=== PATIENT | female | born 1955 | race Caucasian/White ===

== ENCOUNTER 2020-04-21 07:38 | Outpatient (CLI) | payer OTHER, SELFPAY ==
[2020-04-21 09:02] LABS: Alanine Aminotransferase 21 U/L (4-35); Albumin Level 4.2 g/dL (3.5-5.1); Alkaline Phosphatase 85 U/L (38-126); Aspartate Amino Transferase 26 U/L (14-36); Bilirubin,Total 0.8 mg/dL (0.2-1.3); Blood Urea Nitrogen 17 mg/dL (7-17); Carbon Dioxide 29 mmol/L (22-30); Chloride 102 mmol/L (98-107); Cholesterol 194 mg/dL (0-200); Estimated Glomerular Filt Rate > 60; Glucose 91 mg/dL (65-105); HDL Direct 59 mg/dL; Potassium 4.1 mmol/L (3.4-5.0); Sodium 137 mmol/L (137-145); Triglycerides 52 mg/dL (<150)
[2020-04-21 09:04] LABS: Basophils Percent Auto 0.4 % (0.2-1.2); Eosinophils Absolute Auto 0.1 K/mm3 (0-0.3); Eosinophils Percent Auto 1.8 % (0-4.4); Hematocrit 43.6 % (37.0-47.0); Hemoglobin 14.5 g/dL (12.0-15.0); Immature Granulocyte Absolute 0.01 K/mm3 (0.00-0.031); Immature Granulocyte Percent A 0.1 % (0-0.5); Lymphocytes Absolute Auto 2.42 K/mm3 (0.9-3.2); Lymphocytes Percent Auto 35.6 % (18.3-44.2); Mean Corpuscular HGB Conc 33.3 g/dl (32-36); Mean Corpuscular Hemoglobin 29.7 pg (26-34); Mean Corpuscular Volume 89.2 fl (80-100); Mean Platelet Volume 10.8 fl (7.4-10.4); Monocytes Absolute Auto 0.5 K/mm3 (0.1-0.6); Monocytes Percent Auto 7.7 % (2.6-8.5); Neutrophils Absolute Auto 3.7 K/mm3 (1.3-6.7); Neutrophils Percent Auto 54.4 % (45.5-73.1); Platelet Count Result 251 k/mm3 (150-375); Red Blood Count 4.89 M/mm3 (4.2-5.4); Red Cell Distribution Width 13.2 % (11.5-14.5); White Blood Count 6.8 K/mm3 (4.5-10.0)
[2020-04-21 09:14] LABS: LDL Cholesterol Direct 99 mg/dL
[2020-04-21 10:01] LABS: Vitamin D 25 Hydroxy 47.3 ng/mL
[2020-04-21 10:10] LABS: Folic Acid > 20.0 ng/mL (2.76->20)
[2020-04-21 10:14] LABS: Thyroid Stimulating Hormone Reflex 0.454 uIU/mL (0.465-4.68)
[2020-04-21 10:46] LABS: Free T4 Free Thyroxine Reflex 1.01 ng/dL (0.78-2.19)
[2020-04-21 12:31] LABS: Total Triiodothyronine (T3) 1.43 NG/ML (0.97-1.69)
== END 2020-04-21 07:39 | disposition home or self-care (01) ==
PROVIDERS: PCP Internal Medicine; Visit Provider Internal Medicine
DX: E78.5 Hyperlipidemia, unspecified (principal); E55.9 Vitamin D deficiency, unspecified
CPT/HCPCS: 36415; 80053; 80061; 82306; 82607; 82746; 84439; 84443; 84480; 85025

== ENCOUNTER 2020-05-06 14:59 | Outpatient (CLI) | payer OTHER, SELFPAY ==
--- NOTE | ~2020-05-06 | MM_ITS ---
EXAMINATION: MM scrn austyn implant BI w alyssa HISTORY: Screening mammogram TECHNIQUE: Craniocaudal and mediolateral oblique 3-D tomosynthesis images with implant displacement a nd synthetic 2-D images were generated. Craniocaudal and mediolateral oblique views of the breasts wi thout implant displacement were obtained using full field digital mammography. CAD analysis was submi tted and interpreted. COMPARISON: 08/15/2018, 04/29/2017 BREAST PARENCHYMAL COMPOSITION: The breasts are almost entirely fatty. FINDINGS: There is no evidence of suspicious mass, calcification, or architectural distortion to sugg est malignancy in either breast. There has been no suspicious interval change. IMPRESSION: 1. No mammographic evidence of malignancy. 2. Recommend routine screening mammography in one year. BI-RADS Category 1: Negative Reviewed, dictated and finalized at location A.
== END 2020-05-06 15:00 | disposition home or self-care (01) ==
PROVIDERS: PCP Internal Medicine; Visit Provider Internal Medicine
DX: Z12.31 Encounter for screening mammogram for malignant neoplasm of breast (principal)
CPT/HCPCS: 77063; 77067

== ENCOUNTER 2021-05-10 15:28 | Outpatient (CLI) | payer MEDICARE, SELFPAY ==
--- NOTE | ~2021-05-10 | MM_ITS ---
EXAMINATION: MM scrn austyn implant BI w alyssa HISTORY: Screening mammogram TECHNIQUE: Craniocaudal and mediolateral oblique 3-D tomosynthesis images with implant displacement a nd synthetic 2-D images were generated. Craniocaudal and mediolateral oblique views of the breasts wi thout implant displacement were obtained using full field digital mammography. CAD analysis was submi tted and interpreted. COMPARISON: 05/06/2020, 08/15/2018, 04/29/2017 BREAST PARENCHYMAL COMPOSITION: There are scattered areas of fibroglandular density. FINDINGS: There is no evidence of suspicious mass, calcification, or architectural distortion to sugg est malignancy in either breast. There has been no suspicious interval change. IMPRESSION: 1. No mammographic evidence of malignancy. 2. Recommend routine screening mammography in one year. BI-RADS Category 1: Negative Reviewed, dictated and finalized at location A.
== END 2021-05-10 15:29 | disposition home or self-care (01) ==
PROVIDERS: PCP Internal Medicine; Visit Provider Internal Medicine
DX: Z12.31 Encounter for screening mammogram for malignant neoplasm of breast (principal)
CPT/HCPCS: 77063; 77067

== ENCOUNTER 2022-10-09 10:16 | Outpatient (CLI) | payer MEDICARE, SELFPAY ==
--- NOTE | ~2022-10-09 | MM_ITS ---
EXAMINATION: MM scrn austyn implant BI w alyssa HISTORY: . TECHNIQUE: Craniocaudal and mediolateral oblique 3-D tomosynthesis images with implant displacement a nd synthetic 2-D images were generated. Craniocaudal and mediolateral oblique views of the breasts wi thout implant displacement were obtained using full field digital mammography. CAD analysis was submi tted and interpreted. COMPARISON: Comparison to multiple prior studies sequentially, with oldest reviewed study dated 12/2016. BREAST PARENCHYMAL COMPOSITION: There are scattered areas of fibroglandular density. FINDINGS: There are bilateral subpectoral saline implants. There is no evidence of suspicious mass, c alcification, or architectural distortion to suggest malignancy in either breast. There has been no s uspicious interval change. IMPRESSION: 1. No mammographic evidence of malignancy. 2. Recommend routine screening mammography in one year. BI-RADS Category 1: Negative Reviewed, dictated and finalized at location B. SPOOLER
== END 2022-10-09 10:17 | disposition home or self-care (01) ==
PROVIDERS: PCP Internal Medicine; Visit Provider Internal Medicine
DX: Z12.31 Encounter for screening mammogram for malignant neoplasm of breast (principal)
CPT/HCPCS: 77063; 77067

== ENCOUNTER 2024-09-08 17:58 | Emergency (ER) | payer MEDICARE, SELFPAY ==
[2024-09-08] VITALS (12 sets, daily range): BP systolic 143–230; BP diastolic 91–128; PULSE 70–91; RESP 13–24; TEMP 36.6; O2SAT 97–100
--- NOTE | ~2024-09-08 | XR_ITS ---
CHEST RADIOGRAPH, PA AND LATERAL CLINICAL HISTORY: chest pain . COMPARISON: 06/19/2016 TECHNIQUE: PA and lateral views of the chest. FINDINGS The cardiomediastinal silhouette is unremarkable. The lungs are clear. Visualized osseous structures and soft tissues are unremarkable. IMPRESSION: No focal infiltrate or effusion. Reviewed, dictated and finalized at location A. SPLICER
--- NOTE | ~2024-09-08 | CT_ITS ---
EXAMINATION: CTA chest DATE: 09/08/2024 21:56 PROFESSIONAL BUILDER INDICATION: Chest pain, dissection suspected clinically TECHNIQUE: Computed tomographic angiography (CTA) of the chest was performed with 100 mL Omnipaque-35 0 intravenous contrast. The dose-length product was 522.19 mGy-cm. Maximum intensity projection 3D-re constructions of the aorta and other arteries were constructed by the technologist on a separate work station. COMPARISON: None. FINDINGS: The thyroid gland is heterogeneous and enlarged for which nonemergent thyroid ultrasound may be perfo rmed. The thoracic aorta is unremarkable without dissection. No aneurysmal dilatation is present. No filling defects within the main or proximal pulmonary arteries. The heart is of normal size, without pericardial effusion. The gallbladder is decompressed, and otherwise unremarkable. IMPRESSION: No dissection. No pulmonary embolus. Incidental notation is made of heterogeneously enlarged thyroid gland for which ultrasound may be per formed nonemergently for follow-up. Reviewed, dictated and finalized at location A. ESSIONAL BUILDER IMPRESSION: No dissection. No pulmonary embolus. Incidental notation is made of heterogeneously enlarged thyroid gland for which ultrasound may be performed nonemergently for follow-up.
--- NOTE | 2024-09-08 17:58 | ECG_ITS ---
Test Date: 2024-09-08 18:04:42 Measurements Intervals [place] Rate: 82 P: 39 [place]: 149 QRS: -29 QRSD: 98 T: 56 QT: 363 QTc: 425 Interpretive Statements SINUS RHYTHM LEFT VENTRICULAR HYPERTROPHY AND ST-T CHANGE CANNOT R/O SEPTAL INFARCT, AGE INDETERMINATE BORDERLINE ST ABNORMALITY- INF/LAT LEADS BASELINE ARTIFACT- I, II, III, AVR, AVL, AVF, V1-V2 ABNORMAL ECG No previous ECG available for comparison Electronically Signed On 09-08-2024 18:27:12 BOSTON CUTTER by Jude Bartlett D.O.
--- NOTE | 2024-09-08 18:01 | ED_ITS ---
HPI - Chest Pain General Chief Complaint: Chest Pain Stated Complaint: chest pain/high bp Time Seen by Provider: 09/08/24 18:01 Focused HPI: This is a 68 year old female that presents to the ER for chest pain. Reports it feels like chest pressure. Reports associated shortness of breath. Reports associated high blood pressure. Reports she saw a new PCP and was taken off her blood pressure medication a couple of weeks ago. It was running high again, so she just re-started it and took one prior to arrival. GENERAL: Well-appearing, well-nourished, and in no acute distress. HEAD: Normocephalic, atraumatic. CHEST: Clear to auscultation. ?No respiratory distress. HEART: Regular rate and rhythm.? NEURO: ?Alert and oriented x3. Patient screened in triage and initial orders placed.? ?Additional care and disposition to be based upon?diagnostic testing and treatment. Related Data Home Medications Medication Instructions Recorded Confirmed atorvastatin 20 mg tablet 20 mg PO DAILY 01/16/24 08/19/24 diclofenac sodium 75 mg 75 mg PO BID PRN 01/16/24 08/19/24 tablet,delayed release omega 8-pzf-yyz-fish oil 60 mg-90 1 cap PO DAILY 01/16/24 08/19/24 mg-500 mg capsule (Fish Oil) Allergies Allergy/AdvReac Type Severity Reaction Status Date / Time morphine Allergy Unknown vomitting Verified 08/19/24 13:00 No Known Allergies Allergy Verified 08/19/24 13:00 PMFSH Past Medical History Medical History (Updated 08/19/24 @ 14:19 by Rubina Taylor NP) Anxiety Arthritis Bilateral hip pain Bilateral knee pain BMI 32.0-32.9,adult Headache, migraine HTN (hypertension) Hyperlipidemia Intertrigo Itchy scalp Screening for breast cancer Surgical History Surgical History History of foot surgery History of hysterectomy for benign disease For fibroids. Still has ovaries Hx of breast implants, bilateral Family History Family History Mother Family history of glaucoma Father Family history of heart disease in male family member before age 55 Patient's father is Sibling Family history of heart disease in male family member before age 55 Social History Social History Social History: caffeine . diet coke , cup coffee Smoking status: Never smoker Alcohol intake: never Substance use: never Substance use type: does not use Do You Feel Safe in your Home?: Yes Lack of Transportation: No Concerned About Future Housing: Decline to Answer Difficulty Paying Gas/Electric Bills: Decline to Answer Difficulty Paying for Meds: Decline to Answer Currently Unemployed: Decline to Answer Education: Decline to Answer Difficulty w/ Childcare or Family Care: Decline to Answer Living arrangements: with family Additional living arrangements comments: spouse Occupation/Education: retired Gender identity (if verbalized by the patient): Female Sexual Orientation (if Verbalized by the Patient): Straight or Heterosexual Discharge Plan Discharge Prescriptions: No Action buspirone 15 mg tablet 15 mg PO BID Qty: 180 3RF atorvastatin 20 mg tablet 20 mg PO DAILY Hold Instructions: .Provider Order diclofenac sodium 75 mg tablet,delayed release (DR/EC) 75 mg PO BID PRN Hold Instructions: .Provider Order omega 7-mlk-coy-fish oil [Fish Oil] 60-90-500 mg capsule 1 cap PO DAILY Hold Instructions: .Provider Order betamethasone dipropionate 0.05 % cream 1 applic topical BID Qty: 15 2RF Rx Instructions: use 2x/day for up to 2 weeks then as needed econazole 1 % cream 1 applic topical BID Qty: 30 2RF Rx Instructions: apply to rash twice daily until clear losartan 25 mg tablet 25 mg PO DAILY Qty: 90 3RF Hold Instructions: .Provider Order Follow-up/Referrals: Rubina Taylor NP [Primary Care Provider] -
[2024-09-08 18:18] LABS: Basophils Percent Auto 0.4 % (0.2-1.2); Eosinophils Absolute Auto 0.1 K/mm3 (0-0.3); Eosinophils Percent Auto 1.6 % (0-4.4); Hematocrit 44.7 % (37.0-47.0); Hemoglobin 15.1 g/dL (12.0-15.0); Immature Granulocyte Absolute 0.01 K/mm3 (0.00-0.031); Immature Granulocyte Percent A 0.1 % (0-0.5); Lymphocytes Absolute Auto 3.22 K/mm3 (0.9-3.2); Lymphocytes Percent Auto 37.7 % (18.3-44.2); Mean Corpuscular HGB Conc 33.8 g/dl (32-36); Mean Corpuscular Hemoglobin 30.6 pg (26-34); Mean Corpuscular Volume 90.7 fl (80-100); Mean Platelet Volume 9.7 fl (7.4-10.4); Monocytes Absolute Auto 0.5 K/mm3 (0.1-0.6); Monocytes Percent Auto 5.6 % (2.6-8.5); Neutrophils Absolute Auto 4.7 K/mm3 (1.3-6.7); Neutrophils Percent Auto 54.6 % (45.5-73.1); Platelet Count Result 277 k/mm3 (150-375); Red Blood Count 4.93 M/mm3 (4.2-5.4); Red Cell Distribution Width 13.3 % (11.5-14.5); White Blood Count 8.5 K/mm3 (4.5-10.0)
[2024-09-08 18:36] LABS: Alanine Aminotransferase 29 U/L (6-35); Albumin Level 4.7 g/dL (3.5-5.1); Alkaline Phosphatase 82 U/L (38-126); Anion Gap 6 mmol/L (4-12); Aspartate Amino Transferase 29 U/L (14-36); Bilirubin,Total 0.6 mg/dL (0.2-1.3); Blood Urea Nitrogen 12 mg/dL (7-17); Calcium 9.3 mg/dL (8.4-10.2); Carbon Dioxide 31 mmol/L (22-30); Chloride 103 mmol/L (98-107); Estimated CRCL calculation 78 ml/min; Estimated Glomerular Filt Rate > 60; Glucose 130 mg/dL (65-110); Lipase 85 U/L (23-300); Sodium 140 mmol/L (137-145)
[2024-09-08 18:41] LABS: INR 0.9; Prothrombin Time 12.9 Seconds (11.1-14.7)
[2024-09-08 18:42] LABS: Partial Thromboplastin Time 27.2 Seconds (22.3-36.8)
[2024-09-08 18:45] LABS: Troponin I < 0.012 ng/mL (0.000-0.034)
[2024-09-08 18:53] LABS: D Dimer 0.41 ug/mL (<0.48)
--- NOTE | 2024-09-08 21:05 | ECG_ITS ---
Test Date: 2024-09-08 21:25:35 Measurements Intervals [place] Rate: 72 P: 35 NE: 163 QRS: -19 QRSD: 93 T: 67 QT: 379 QTc: 417 Interpretive Statements SINUS RHYTHM CANNOT R/O SEPTAL INFARCT, AGE INDETERMINATE BASELINE ARTIFACT- I, II, III, AVR, AVL, AVF, V1, V3, V6 ABNORMAL ECG Compared to ECG 09/08/2024 18:04:42 NO SIGNIFICANT CHANGE Electronically Signed On 09-09-2024 06:36:38 SURVEY WORKER by Jude Bartlett D.O.
[2024-09-08 21:56] LABS: NT Pro B Type Natriuretic Pept 66 pg/mL (19.9-100); Troponin I < 0.012 ng/mL (0.000-0.034)
--- NOTE | 2024-09-08 22:54 | ED_ITS ---
HPI - Recheck/Abnormal Lab/Rx General Chief Complaint: Recheck/Abnormal Lab/Rx Stated Complaint: chest pain/high bp Time Seen by Provider: 09/08/24 18:01 History of Present Illness HPI narrative: 60-year-old female with history of hyperlipidemia and hypertension presents to the emergency department for elevated blood pressure for several weeks and chest pressure over the past couple of days. Patient states the pain is located in her mid sternal chest. She also states she has pain in her neck but does not feel like these are related. States that she was on atorvastatin and losartan 25 mg daily until her PCP left the practice several weeks ago. She recently established with an new PCP and started her losartan again today. States she took her 1st dose today. She has not been taking it for 3 weeks. She states her blood pressure has been elevated at home her PCP advised her to keep an eye on it. States she then was advised to go to the ED by her PCP after blood pressure was found to be extremely elevated and patient reported chest pain. She denies cough or congestion. She denies exertional symptoms and in fact states that her chest pain is worse when she is at rest and thinking about it, and better when she is exerting herself and distracted. The patient also notes that her PCP recently started her on buspirone. She denies personal known cardiac history, lower extremity edema hemoptysis, history of ED, surgeries or hospitalizations in the past 4 weeks. She does not smoke. She admits that her father and brother have known cardiac disease. Related Data Home Medications Medication Instructions Recorded Confirmed atorvastatin 20 mg tablet 20 mg PO DAILY 01/16/24 08/19/24 diclofenac sodium 75 mg 75 mg PO BID PRN 01/16/24 08/19/24 tablet,delayed release omega 0-hqr-hry-fish oil 60 mg-90 1 cap PO DAILY 01/16/24 08/19/24 mg-500 mg capsule (Fish Oil) Allergies Allergy/AdvReac Type Severity Reaction Status Date / Time morphine Allergy Unknown vomitting Verified 08/19/24 13:00 No Known Allergies Allergy Verified 08/19/24 13:00 Review of Systems Review of Systems: All systems reviewed & are unremarkable except as noted in HPI and below PMFSH Past Medical History Medical History Anxiety Arthritis Bilateral hip pain Bilateral knee pain BMI 32.0-32.9,adult Headache, migraine HTN (hypertension) Hyperlipidemia Intertrigo Itchy scalp Screening for breast cancer Surgical History Surgical History History of foot surgery History of hysterectomy for benign disease For fibroids. Still has ovaries Hx of breast implants, bilateral Family History Family History Mother Family history of glaucoma Father Family history of heart disease in male family member before age 55 Patient's father is Sibling Family history of heart disease in male family member before age 55 Social History Social History Social History: caffeine . diet coke , cup coffee Smoking status: Never smoker Alcohol intake: never Substance use: never Substance use type: does not use Do You Feel Safe in your Home?: Yes Lack of Transportation: No Concerned About Future Housing: Decline to Answer Difficulty Paying Gas/Electric Bills: Decline to Answer Difficulty Paying for Meds: Decline to Answer Currently Unemployed: Decline to Answer Education: Decline to Answer Difficulty w/ Childcare or Family Care: Decline to Answer Living arrangements: with family Additional living arrangements comments: spouse Occupation/Education: retired Gender identity (if verbalized by the patient): Female Sexual Orientation (if Verbalized by the Patient): Straight or Heterosexual Exam Narrative: GENERAL: Well-appearing, well-nourished, and in no acute distress. Anxious appearing HEAD: Normocephalic, atraumatic. EYES: PERRLA and EOMI. ENT: Nares clear, no rhinorrhea or epistaxis. Mucous membranes moist. NECK: Supple. CHEST: Clear to auscultation. No respiratory distress. HEART: Regular rate and rhythm. No murmur heard. Normal peripheral pulses. ABDOMEN: Soft, nontender, nondistended, normal active bowel sounds. EXTREMITIES: Normal range of motion. No edema. Negative Homans bilaterally SKIN: Warm, dry, no rash. NEURO: No focal deficits. Alert and oriented x3 Course Vital Signs Vital signs: Vital Signs Temperature 97.9 F 09/08/24 18:00 Pulse Rate 87 09/08/24 18:00 Respiratory Rate 19 09/08/24 18:00 Blood Pressure 198/103 H 09/08/24 18:00 Pulse Oximetry 100 09/08/24 18:00 Oxygen Delivery Room Air 09/08/24 18:00 Temperature 97.9 F 09/08/24 18:00 Pulse Rate 81 09/08/24 23:01 Respiratory Rate 17 09/08/24 23:01 Blood Pressure 170/94 H 09/08/24 23:01 Pulse Oximetry 100 09/08/24 23:01 Oxygen Delivery Room Air 09/08/24 18:00 MDM - Recheck/Abnormal Lab/Rx MDM Narrative Medical decision making narrative: 68-year-old female with history of hypertension and hyperlipidemia presents to the emergency department for chest pain and elevated blood pressure. See HPI for further history. Triage vitals are significant for hypertension of 210/91. Vitals are otherwise unremarkable. Patient is afebrile nontoxic appearing on exam and resting comfortably in exam bed. DDX includes but is not limited to hypertensive emergency, pneumonia, ACS, aortic dissection, PE, pneumothorax and other Original EKG reveals sinus rhythm with a rate of 82, normal OR interval normal QRS duration, normal QTC, is in the septal leads, borderline inferior lateral ST abnormality. Repeat EKG shows sinus normal OR interval, QRS duration QTC, Q- waves again seen in the septal leads, no ST changes. Troponin is undetectable x2. CBC shows no leukocytosis or anemia. Chemistries are unremarkable. Lipase is normal. D-dimer within normal limits. Chest x-ray shows no acute cardiopulmonary findings. CTA chest PE obtained to rule out dissection which shows no dissection, no PE. There is incidental notation is made of head or out genius the enlarged thyroid gland throat ultrasound may be performed emergently for follow-up. BNP within normal limits. Patient updated on workup. Plan was to give patient nitro for concern for hypertensive emergency, however her blood pressures spontaneously improved without intervention to 155/104. As noted in HPI, she was recently started back on her losartan and took her 1st dose today. Upon re-evaluation the patient states she no longer has any chest pain. She denies exertional symptoms and in fact states her pain is improved with exertion, worse when resting. I discussed concern for borderline ST depression in the inferior lateral leads on her initial EKG, and uncontrolled blood pressure. Discussed she may have underlying CAD and would benefit from admission for further evaluation and management. I informed her I cannot rule out the possibility of her going home and having an NV. The patient declined admission and states she would like to go home to care for her dog. She agrees to follow-up closely with her PCP and to monitor her blood pressure. Also agrees to follow up with Cardiology, referral provided. Discussed strict ED return precautions. She is agreeable with the plan verbalized understanding. Discharged in stable condition. Lab Data 09/08/24 18:10 09/08/24 18:10 Labs: Lab Results 09/08/24 09/08/24 09/08/24 Range/Units 18:10 18:10 21:28 WBC 8.5 (4.5-10.0) K/mm3 RBC 4.93 (4.2-5.4) M/mm3 Hgb 15.1 H (12.0-15.0) g/dL Hct 44.7 (37.0-47.0) % MCV 90.7 (80-100) fl MCH 30.6 (26-34) pg MCHC 33.8 (32-36) g/dl RDW 13.3 (11.5-14.5) % Plt Count 277 (150-375) k/mm3 MPV 9.7 (7.4-10.4) fl Immature Gran % (Auto) 0.1 (0-0.5) % Neut % (Auto) 54.6 (45.5-73.1) % Lymph % (Auto) 37.7 (18.3-44.2) % [place] % (Auto) 5.6 (2.6-8.5) % Eos % (Auto) 1.6 (0-4.4) % Baso % (Auto) 0.4 (0.2-1.2) % Lymph # (Auto) 3.22 H (0.9-3.2) K/mm3 [place] # (Auto) 0.5 (0.1-0.6) K/mm3 Eos # (Auto) 0.1 (0-0.3) K/mm3 Baso # (Auto) 0.0 (0.0-0.1) K/mm3 Abs Immat Gran (auto) 0.01 (0.00-0.031) K/mm3 Absolute Neuts (auto) 4.7 (1.3-6.7) K/mm3 Absolute Nucleated RBC 0.000 (0.0-0.012) K/mm3 Nucleated RBC % 0.0 (0.0-0.2) % PT 12.9 (11.1-14.7) Seconds INR 0.9 APTT 27.2 (22.3-36.8) Seconds D-Dimer 0.41 Cancelled (<0.48) ug/mL Sodium 140 (137-145) mmol/L Potassium 4.0 (3.4-5.0) mmol/L Chloride 103 (98-107) mmol/L Carbon Dioxide 31 H (22-30) mmol/L Anion Gap 6 (4-12) mmol/L BUN 12 D (7-17) mg/dL Creatinine 0.70 (0.7-1.0) mg/dL Estim Creat Clear Calc 78 ml/min Estimated GFR > 60 (59 - ) Glucose 130 H (65-110) mg/dL Calcium 9.3 (8.4-10.2) mg/dL Total Bilirubin 0.6 (0.2-1.3) mg/dL AST 29 (14-36) U/L ALT 29 (6-35) U/L Alkaline Phosphatase 82 (38-126) U/L Troponin I < 0.012 < 0.012 (0.000-0.034) ng/mL NT-Pro-B Natriuret Pep 66 (19.9-100) pg/mL Total Protein 8.0 (6.3-8.2) g/dL Albumin 4.7 (3.5-5.1) g/dL Lipase 85 (23-300) U/L 09/08/24 Range/Units 21:28 WBC (4.5-10.0) K/mm3 RBC (4.2-5.4) M/mm3 Hgb (12.0-15.0) g/dL Hct (37.0-47.0) % MCV (80-100) fl MCH (26-34) pg MCHC (32-36) g/dl RDW (11.5-14.5) % Plt Count (150-375) k/mm3 MPV (7.4-10.4) fl Immature Gran % (Auto) (0-0.5) % Neut % (Auto) (45.5-73.1) % Lymph % (Auto) (18.3-44.2) % [place] % (Auto) (2.6-8.5) % Eos % (Auto) (0-4.4) % Baso % (Auto) (0.2-1.2) % Lymph # (Auto) (0.9-3.2) K/mm3 [place] # (Auto) (0.1-0.6) K/mm3 Eos # (Auto) (0-0.3) K/mm3 Baso # (Auto) (0.0-0.1) K/mm3 Abs Immat Gran (auto) (0.00-0.031) K/mm3 Absolute Neuts (auto) (1.3-6.7) K/mm3 Absolute Nucleated RBC (0.0-0.012) K/mm3 Nucleated RBC % (0.0-0.2) % PT (11.1-14.7) Seconds INR APTT (22.3-36.8) Seconds D-Dimer (<0.48) ug/mL Sodium (137-145) mmol/L Potassium (3.4-5.0) mmol/L Chloride (98-107) mmol/L Carbon Dioxide (22-30) mmol/L Anion Gap (4-12) mmol/L BUN (7-17) mg/dL Creatinine (0.7-1.0) mg/dL Estim Creat Clear Calc ml/min Estimated GFR (59 - ) Glucose (65-110) mg/dL Calcium (8.4-10.2) mg/dL Total Bilirubin (0.2-1.3) mg/dL AST (14-36) U/L ALT (6-35) U/L Alkaline Phosphatase (38-126) U/L Troponin I (0.000-0.034) ng/mL NT-Pro-B Natriuret Pep Cancelled (19.9-100) pg/mL Total Protein (6.3-8.2) g/dL Albumin (3.5-5.1) g/dL Lipase (23-300) U/L Discharge Plan Discharge Clinical Impression: Hypertension, Atypical chest pain, Enlarged thyroid Patient Disposition: Home, Self-Care Condition: Stable Instructions: Antibiotic Form, Chest Pain (DC), Hypertension (ED) Additional Instructions: Your evaluated in the emergency department for high blood pressure and chest pa in. Your EKG showed possible small changes that may represent underlying her disease. Please make sure to follow-up with her senior auditor regarding this. We discussed admitting to the hospital for further evaluation by you are preferring to be discharged home. Please make sure to follow-up with your primary care provider regarding her blood pressure is you may need her blood pressure medications changed. Please make sure to keep a blood pressure log to present your primary care provider. Return to the emergency department if you develop return for chest pain, shortness of breath, vision changes, blood pressure of 220/120, or other concerning symptoms. The CT scan also showed a subtle finding of a large thyroid. Please get this evaluated by your PCP. Prescriptions: No Action buspirone 15 mg tablet 15 mg PO BID Qty: 180 3RF atorvastatin 20 mg tablet 20 mg PO DAILY Hold Instructions: .Provider Order diclofenac sodium 75 mg tablet,delayed release (DR/EC) 75 mg PO BID PRN Hold Instructions: .Provider Order omega 9-yow-vki-fish oil [Fish Oil] 60-90-500 mg capsule 1 cap PO DAILY Hold Instructions: .Provider Order betamethasone dipropionate 0.05 % cream 1 applic topical BID Qty: 15 2RF Rx Instructions: use 2x/day for up to 2 weeks then as needed econazole 1 % cream 1 applic topical BID Qty: 30 2RF Rx Instructions: apply to rash twice daily until clear losartan 25 mg tablet 25 mg PO DAILY Qty: 90 3RF Hold Instructions: .Provider Order Follow-up/Referrals: Rubina Taylor NP [Primary Care Provider] - Ayad Mendez MD [Physician] - 1 Day
== END 2024-09-08 23:04 | disposition home or self-care (01) ==
PROVIDERS: Emergency Medicine; Emergency Provider Physician Assistant; PCP Nurse Practitioner Family
DX: R07.89 Other chest pain (principal); I10 Essential (primary) hypertension; E04.9 Nontoxic goiter, unspecified; E78.5 Hyperlipidemia, unspecified; M19.90 Unspecified osteoarthritis, unspecified site; F41.9 Anxiety disorder, unspecified; Z90.710 Acquired absence of both cervix and uterus; R94.31 Abnormal electrocardiogram [ECG] [EKG]; Z79.899 Other long term (current) drug therapy
CPT/HCPCS: 36415; 71046; 71275; 80053; 83690; 83880; 84484; 85025; 85380; 85610; 85730; 93005; 99284; Q9967

== ENCOUNTER 2024-09-17 11:07 | Outpatient (CLI) | payer MEDICARE, SELFPAY ==
--- NOTE | ~2024-09-17 | US_ITS ---
EXAMINATION: US thyroid DATE: 09/17/2024 11:59 INDICATION: Thyroid nodule. TECHNIQUE: Multiple ultrasound images of the thyroid were obtained. COMPARISON: Ultrasound 08/13/2016 FINDINGS: The right thyroid lobe measures 6.2 x 1.5 x 2.0 cm. The left thyroid lobe measures 6.4 x 2.0 x 1.8 c m. In the right thyroid lobe, there is an 11 mm solid, hypoechoic, wider than tall nodule with lobul ated margin and punctate echogenic foci (TI-RADS TR5), stable from 08/13/16. In the right thyroid lob e, there is a 1.9 cm mixed cystic and solid, hypoechoic, wider than tall nodule with ill-defined mahendra in without echogenic foci (TR3). In the right thyroid lobe, there is a 1.3 cm solid, hypoechoic, wide r than tall nodule with smooth margin without echogenic foci (TR4). In the left thyroid lobe, there i s a 2.4 cm predominantly solid, hyperechoic, taller than wide nodule with ill-defined margin without echogenic foci (TR4), stable from 08/13/16. IMPRESSION: 1. Multinodular goiter. Thyroid ultrasound is recommended in one year. Reviewed, dictated and finalized at location A. ER EXPERT
== END 2024-09-17 11:08 | disposition home or self-care (01) ==
PROVIDERS: PCP Nurse Practitioner Family; Visit Provider Nurse Practitioner Family
DX: E04.2 Nontoxic multinodular goiter (principal)
CPT/HCPCS: 76536

== ENCOUNTER 2024-09-17 11:57 | Emergency (ER) | payer MEDICARE, SELFPAY ==
[2024-09-17] VITALS (8 sets, daily range): BP systolic 116–170; BP diastolic 71–116; PULSE 82–95; RESP 16–28; TEMP 36.4; O2SAT 95–100
--- NOTE | ~2024-09-17 | XR_ITS ---
EXAMINATION: XR chest 2V DATE: 09/17/2024 14:18 INDICATION: Hypertension. Palpitations. TECHNIQUE: PA and lateral views of the chest were obtained. COMPARISON: Chest radiograph and CT dated 09/08/2024 FINDINGS: The lungs are clear with no focal airspace opacities, pulmonary edema, pleural effusion or pneumothor ax. The cardiomediastinal silhouette is normal. Bilateral breast implants. Mild thoracic levocurvatur e and upper lumbar dextrocurvature with moderate spondylosis. Chronic mild anterior wedging of T7 and T8. IMPRESSION: 1. No acute cardiopulmonary disease. Reviewed, dictated and finalized at location B. RAL SUPPLY TECHNICIAN SUPERVISOR
--- NOTE | 2024-09-17 13:55 | ECG_ITS ---
Test Date: 2024-09-17 14:32:37 Measurements Intervals [place] Rate: 87 P: 31 DE: 173 QRS: -17 QRSD: 89 T: 34 QT: 366 QTc: 441 Interpretive Statements SINUS RHYTHM BORDERLINE R WAVE PROGRESSION, ANTERIOR LEADS BASELINE ARTIFACT- I, II, III, AVR, AVL, AVF, V1-V6 BORDERLINE ECG Compared to ECG 09/08/2024 21:25:35 NO SIGNIFICANT CHANGE Electronically Signed On 09-17-2024 14:50:26 AUDIOLOGY DOCTOR by Jude Bartlett D.O.
--- NOTE | 2024-09-17 13:57 | ED_ITS ---
HPI - General Adult General Chief complaint: Recheck/Abnormal Lab/Rx <Cristine Terry APRN - Last Filed: 09/17/24 14:01> Stated complaint: Flushing, HTN <Cristine Terry APRN - Last Filed: 09/17/24 14:01> Time Seen by Provider: 09/17/24 13:45 <Cristine Terry APRN - Last Filed: 09/17/24 14:01> Focused HPI: patient is a 69-year-old female who presents to the ER with complaints of high blood pressure, palpitations, and headache. She reports she was here a week ago for a similar presentation. Today she came to [place] for a thyroid ultrasound but was told to come to the ER because her blood pressure was so high. She reports her primary care provider has increased her medication, but it has not helped. Patient endorses a dry mouth, next pain, and her headache is sustained with a high blood pressure. She has no complaints of one-sided weakness/tingling/numbness, vision changes, fevers, or lower extremity swelling. GENERAL: Well-appearing, well-nourished, and in no acute distress. HEAD: Normocephalic, atraumatic. CHEST: Clear to auscultation. ?No respiratory distress. HEART: Regular rate and rhythm.? NEURO: ?Alert and oriented x3. Patient screened in triage and initial orders placed.? ?Additional care and disposition to be based upon?diagnostic testing and treatment. <Cristine Terry APRN - Last Filed: 09/17/24 14:01> History of Present Illness HPI narrative: Agree with above HPI <Hilary Lobato MD - Last Filed: 09/17/24 18:40> Related Data Home medications: Home Medications Medication Instructions Recorded Confirmed diclofenac sodium 75 mg 75 mg PO BID PRN 01/16/24 09/10/24 tablet,delayed release omega 7-ehg-vti-fish oil 60 mg-90 1 cap PO DAILY 01/16/24 09/10/24 mg-500 mg capsule (Fish Oil) <Cristine Terry APRN - Last Filed: 09/17/24 14:01> Allergies/adverse reactions: Allergies Allergy/AdvReac Type Severity Reaction Status Date / Time morphine Allergy Unknown vomitting Verified 09/17/24 14:23 No Known Allergies Allergy Verified 09/17/24 14:23 <Cristine Terry APRN - Last Filed: 09/17/24 14:01> Review of Systems Review of Systems: All systems reviewed & are unremarkable except as noted in HPI and below <Hilary Lobato MD - Last Filed: 09/17/24 18:40> [facility] Past Medical History Medical History: Medical History Abnormal EKG Anxiety Arthritis Bilateral hip pain Bilateral knee pain BMI 32.0-32.9,adult Elevated fasting glucose Headache, migraine HTN (hypertension) Hyperlipidemia Intertrigo Itchy scalp Screening for breast cancer <Cristine Terry APRN - Last Filed: 09/17/24 14:01> Surgical History Surgical History: Surgical History History of foot surgery History of hysterectomy for benign disease For fibroids. Still has ovaries Hx of breast implants, bilateral <Cristine Terry APRN - Last Filed: 09/17/24 14:01> Family History Family History: Family History Mother Family history of glaucoma Father Family history of heart disease in male family member before age 55 Patient's father is Sibling Family history of heart disease in male family member before age 55 <Cristine Terry APRN - Last Filed: 09/17/24 14:01> Social History Social History: Social History Social History: caffeine . diet coke , cup coffee Smoking status: Never smoker Alcohol intake: never Substance use: never Substance use type: does not use Do You Feel Safe in your Home?: Yes Lack of Transportation: No Concerned About Future Housing: Decline to Answer Difficulty Paying Gas/Electric Bills: Decline to Answer Difficulty Paying for Meds: Decline to Answer Currently Unemployed: Decline to Answer Education: Decline to Answer Difficulty w/ Childcare or Family Care: Decline to Answer Living arrangements: with family Additional living arrangements comments: spouse Occupation/Education: retired Gender identity (if verbalized by the patient): Female Sexual Orientation (if Verbalized by the Patient): Straight or Heterosexual <Cristine Terry APRN - Last Filed: 09/17/24 14:01> Exam Narrative: GENERAL: Well-appearing, in no acute distress, pleasant cooperative HEAD: Normocephalic, atraumatic. EYES: PERRLA and EOMI. ENT: Grossly unremarkable NECK: Supple. CHEST: No respiratory distress. HEART: Regular rate and rhythm EXTREMITIES: Normal range of motion. No edema. SKIN: Warm, dry, no rash. NEURO: No focal deficits. Alert and oriented x3. PSYCH: Normal mood and affect. <Hilary Lobato MD - Last Filed: 09/17/24 18:40> Course Vital Signs Vital signs: Vital Signs Temperature 97.5 F L 09/17/24 12:16 Pulse Rate 95 09/17/24 12:16 Respiratory Rate 16 09/17/24 12:16 Blood Pressure 170/105 H 09/17/24 12:16 Pulse Oximetry 98 09/17/24 12:16 Temperature 97.5 F L 09/17/24 12:16 Pulse Rate 88 09/17/24 17:46 Respiratory Rate 16 09/17/24 17:46 Blood Pressure 116/94 H 09/17/24 17:46 Pulse Oximetry 97 09/17/24 17:46 <Cristine Terry APRN - Last Filed: 09/17/24 14:01> Vital Signs Temperature 97.5 F L 09/17/24 12:16 Pulse Rate 95 09/17/24 12:16 Respiratory Rate 16 09/17/24 12:16 Blood Pressure 170/105 H 09/17/24 12:16 Pulse Oximetry 98 09/17/24 12:16 Temperature 97.5 F L 09/17/24 12:16 Pulse Rate 88 09/17/24 17:46 Respiratory Rate 16 09/17/24 17:46 Blood Pressure 116/94 H 09/17/24 17:46 Pulse Oximetry 97 09/17/24 17:46 <Hilary Lobato MD - Last Filed: 09/17/24 18:40> Medical Decision Making MDM Narrative Medical decision making narrative: 69-year-old female presenting with hypertension. Patient is hypertensive on arrival, this had improved by the time I saw her down to the 140s to 160s over 80s to 90s. She currently denies any complaints. EKG per my interpretation shows normal sinus rhythm, no ST elevations or depressions. Similar to prior. Blood work without acute abnormalities. Troponin is undetectable. Renal function is normal. Chest x-ray without acute abnormalities. Sounds like her PCP just increased her losartan a couple of days ago. Advised that she continue to take this as prescribed. From her descrip tion of these episodes, I am concerned that she is having panic attacks. Patient states that they started whenever she started buspirone so she is going to discontinue this. Feel she is safe for outpatient management, will send in for a few low-dose Ativan for symptomatic control. Recommend close PCP follow- up. Appropriate return precautions given. Discharged in stable condition. <Hilary Lobato MD - Last Filed: 09/17/24 18:40> Differential Diagnosis Differential Diagnosis: Asymptomatic hypertension, anxiety, panic attacks <Hilary Lobato MD - Last Filed: 09/17/24 18:40> Medical Records Medical records reviewed: Yes I reviewed the external patient's medical records. <Hilary Lobato MD - Last Filed: 09/17/24 18:40> Vital Signs Vital Signs: Vital Signs Temperature 97.5 F L 09/17/24 12:16 Pulse Rate 95 09/17/24 12:16 Respiratory Rate 16 09/17/24 12:16 Blood Pressure 170/105 H 09/17/24 12:16 Pulse Oximetry 98 09/17/24 12:16 Temperature 97.5 F L 09/17/24 12:16 Pulse Rate 88 09/17/24 17:46 Respiratory Rate 16 09/17/24 17:46 Blood Pressure 116/94 H 09/17/24 17:46 Pulse Oximetry 97 09/17/24 17:46 <Cristine Terry APRN - Last Filed: 09/17/24 14:01> Vital Signs Temperature 97.5 F L 09/17/24 12:16 Pulse Rate 95 09/17/24 12:16 Respiratory Rate 16 09/17/24 12:16 Blood Pressure 170/105 H 09/17/24 12:16 Pulse Oximetry 98 09/17/24 12:16 Temperature 97.5 F L 09/17/24 12:16 Pulse Rate 88 09/17/24 17:46 Respiratory Rate 16 09/17/24 17:46 Blood Pressure 116/94 H 09/17/24 17:46 Pulse Oximetry 97 09/17/24 17:46 <Hilary Lobato MD - Last Filed: 09/17/24 18:40> Lab Data Lab results reviewed: Yes I reviewed the patient's lab results. <Hilary Lobato MD - Last Filed: 09/17/24 18:40> Result diagrams: 09/17/24 14:33 09/17/24 14:33 <Cristine Terry APRN - Last Filed: 09/17/24 14:01> Labs: Lab Results 09/17/24 Range/Units 14:33 WBC 7.4 (4.5-10.0) K/mm3 RBC 5.16 (4.2-5.4) M/mm3 Hgb 15.6 H (12.0-15.0) g/dL Hct 46.4 (37.0-47.0) % MCV 89.9 (80-100) fl MCH 30.2 (26-34) pg MCHC 33.6 (32-36) g/dl RDW 13.1 (11.5-14.5) % Plt Count 271 (150-375) k/mm3 MPV 9.9 (7.4-10.4) fl Immature Gran % (Auto) 0.1 (0-0.5) % Neut % (Auto) 62.8 (45.5-73.1) % Lymph % (Auto) 29.9 (18.3-44.2) % Boyle % (Auto) 6.3 (2.6-8.5) % Eos % (Auto) 0.5 (0-4.4) % Baso % (Auto) 0.4 (0.2-1.2) % Lymph # (Auto) 2.20 (0.9-3.2) K/mm3 Boyle # (Auto) 0.5 (0.1-0.6) K/mm3 Eos # (Auto) 0.0 (0-0.3) K/mm3 Baso # (Auto) 0.0 (0.0-0.1) K/mm3 Abs Immat Gran (auto) 0.01 (0.00-0.031) K/mm3 Absolute Neuts (auto) 4.6 (1.3-6.7) K/mm3 Absolute Nucleated RBC 0.000 (0.0-0.012) K/mm3 Nucleated RBC % 0.0 (0.0-0.2) % PT 13.0 (11.1-14.7) Seconds INR 0.9 APTT 28.7 (22.3-36.8) Seconds Sodium 140 (137-145) mmol/L Potassium 4.0 (3.4-5.0) mmol/L Chloride 105 (98-107) mmol/L Carbon Dioxide 30 (22-30) mmol/L Anion Gap 5 (4-12) mmol/L BUN 14 (7-17) mg/dL Creatinine 0.70 (0.7-1.0) mg/dL Estim Creat Clear Calc 75 ml/min Estimated GFR > 60 (59 - ) Glucose 106 (65-110) mg/dL Calcium 9.4 (8.4-10.2) mg/dL Total Bilirubin 1.0 (0.2-1.3) mg/dL AST 32 (14-36) U/L ALT 28 (6-35) U/L Alkaline Phosphatase 85 (38-126) U/L Troponin I < 0.012 (0.000-0.034) ng/mL NT-Pro-B Natriuret Pep 43 (19.9-100) pg/mL Total Protein 8.0 (6.3-8.2) g/dL Albumin 4.6 (3.5-5.1) g/dL Lipase 68 (23-300) U/L Urine Color Yellow (Yellow) Urine Appearance Clear (Clear) Urine pH 7.0 (5.0-9.0) Ur Specific [place] 1.005 (1.001-1.035) Urine Protein Negative (Negative) mg/dL Urine Glucose (UA) Negative (Negative) mg/dL Urine Ketones Trace H (Negative) mg/dL Ur Blood (Man) Negative (Negative) Urine Nitrate Negative (Negative) Urine Bilirubin Negative (Negative) Urine Urobilinogen 0.2 (<2.0) mg/dL Leukocyte Esterase Rfl Trace H (Negative) PURVI/UL Urine RBC 0-2 (0-2) /hpf Urine WBC 0-5 (0-3) /hpf Ur Squamous Epith Cells None seen (Few) /hpf Urine Bacteria None seen /hpf Urine Casts 0-2 <Cristine Terry, CHIEF RADIOLOGIC TECHNOLOGIST - Last Filed: 09/17/24 14:01> Lab Results 09/17/24 Range/Units 14:33 WBC 7.4 (4.5-10.0) K/mm3 RBC 5.16 (4.2-5.4) M/mm3 Hgb 15.6 H (12.0-15.0) g/dL Hct 46.4 (37.0-47.0) % MCV 89.9 (80-100) fl MCH 30.2 (26-34) pg MCHC 33.6 (32-36) g/dl RDW 13.1 (11.5-14.5) % Plt Count 271 (150-375) k/mm3 MPV 9.9 (7.4-10.4) fl Immature Gran % (Auto) 0.1 (0-0.5) % Neut % (Auto) 62.8 (45.5-73.1) % Lymph % (Auto) 29.9 (18.3-44.2) % Boyle % (Auto) 6.3 (2.6-8.5) % Eos % (Auto) 0.5 (0-4.4) % Baso % (Auto) 0.4 (0.2-1.2) % Lymph # (Auto) 2.20 (0.9-3.2) K/mm3 Boyle # (Auto) 0.5 (0.1-0.6) K/mm3 Eos # (Auto) 0.0 (0-0.3) K/mm3 Baso # (Auto) 0.0 (0.0-0.1) K/mm3 Abs Immat Gran (auto) 0.01 (0.00-0.031) K/mm3 Absolute Neuts (auto) 4.6 (1.3-6.7) K/mm3 Absolute Nucleated RBC 0.000 (0.0-0.012) K/mm3 Nucleated RBC % 0.0 (0.0-0.2) % PT 13.0 (11.1-14.7) Seconds INR 0.9 APTT 28.7 (22.3-36.8) Seconds Sodium 140 (137-145) mmol/L Potassium 4.0 (3.4-5.0) mmol/L Chloride 105 (98-107) mmol/L Carbon Dioxide 30 (22-30) mmol/L Anion Gap 5 (4-12) mmol/L BUN 14 (7-17) mg/dL Creatinine 0.70 (0.7-1.0) mg/dL Estim Creat Clear Calc 75 ml/min Estimated GFR > 60 (59 - ) Glucose 106 (65-110) mg/dL Calcium 9.4 (8.4-10.2) mg/dL Total Bilirubin 1.0 (0.2-1.3) mg/dL AST 32 (14-36) U/L ALT 28 (6-35) U/L Alkaline Phosphatase 85 (38-126) U/L Troponin I < 0.012 (0.000-0.034) ng/mL NT-Pro-B Natriuret Pep 43 (19.9-100) pg/mL Total Protein 8.0 (6.3-8.2) g/dL Albumin 4.6 (3.5-5.1) g/dL Lipase 68 (23-300) U/L Urine Color Yellow (Yellow) Urine Appearance Clear (Clear) Urine pH 7.0 (5.0-9.0) Ur Specific [place] 1.005 (1.001-1.035) Urine Protein Negative (Negative) mg/dL Urine Glucose (UA) Negative (Negative) mg/dL Urine Ketones Trace H (Negative) mg/dL Ur Blood (Man) Negative (Negative) Urine Nitrate Negative (Negative) Urine Bilirubin Negative (Negative) Urine Urobilinogen 0.2 (<2.0) mg/dL Leukocyte Esterase Rfl Trace H (Negative) PURVI/UL Urine RBC 0-2 (0-2) /hpf Urine WBC 0-5 (0-3) /hpf Ur Squamous Epith Cells None seen (Few) /hpf Urine Bacteria None seen /hpf Urine Casts 0-2 <Hilary Lobato MD - Last Filed: 09/17/24 18:40> Imaging Data Radiologist's impression: ITS Impressions Chest X-Ray 09/17/24 14:28 IMPRESSION: 1. No acute cardiopulmonary disease. <Hilary Lobato MD - Last Filed: 09/17/24 18:40> Critical Care Time Critical Care Time Critical Care Time: No <Hilary Lobato MD - Last Filed: 09/17/24 18:40> Discharge Plan Discharge Clinical Impression: Anxiety, Palpitations, Asymptomatic hypertension <Cristine Terry APRN - Last Filed: 09/17/24 14:01> Patient Disposition: Home, Self-Care <Cristine Terry APRN - Last Filed: 09/17/24 14:01> Condition: Stable <Cristine Terry APRN - Last Filed: 09/17/24 14:01> Instructions: Antibiotic Form, Chronic Hypertension (DC), Anxiety (ED) <Cristine Terry APRN - Last Filed: 09/17/24 14:01> Additional Instructions: Your blood work, chest x-ray, EKG are reassuring today. 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 You may use the Ativan as needed for anxiety. If your symptoms worsen or other concerning symptoms arise, please return to the ER. <Cristine Terry APRN - Last Filed: 09/17/24 14:01> Prescriptions: New lorazepam [Ativan] 0.5 mg tablet 0.5 mg PO BID PRN (Reason: anxiety) Qty: 7 0RF No Action buspirone 15 mg tablet 15 mg PO BID Qty: 180 3RF losartan 50 mg tablet 50 mg PO DAILY Qty: 90 3RF atorvastatin 20 mg tablet 20 mg PO DAILY Qty: 90 3RF Hold Instructions: .Provider Order diclofenac sodium 75 mg tablet,delayed release (DR/EC) 75 mg PO BID PRN Hold Instructions: .Provider Order omega 5-ssh-odn-fish oil [Fish Oil] 60-90-500 mg capsule 1 cap PO DAILY Hold Instructions: .Provider Order betamethasone dipropionate 0.05 % cream 1 applic topical BID Qty: 15 2RF Rx Instructions: use 2x/day for up to 2 weeks then as needed econazole 1 % cream 1 applic topical BID Qty: 30 2RF Rx Instructions: apply to rash twice daily until clear <Cristine Terry APRN - Last Filed: 09/17/24 14:01> Follow-up/Referrals: Benedicto Mendoza MD [Physician] - <Cristine Terry APRN - Last Filed: 09/17/24 14:01>
[2024-09-17] MEDS: ASPIRIN 81 MG CHEWABLE TABLET 324 MG PO (14:23)
[2024-09-17 14:44] LABS: Basophils Percent Auto 0.4 % (0.2-1.2); Eosinophils Percent Auto 0.5 % (0-4.4); Hematocrit 46.4 % (37.0-47.0); Hemoglobin 15.6 g/dL (12.0-15.0); Immature Granulocyte Absolute 0.01 K/mm3 (0.00-0.031); Immature Granulocyte Percent A 0.1 % (0-0.5); Lymphocytes Percent Auto 29.9 % (18.3-44.2); Mean Corpuscular HGB Conc 33.6 g/dl (32-36); Mean Corpuscular Hemoglobin 30.2 pg (26-34); Mean Corpuscular Volume 89.9 fl (80-100); Mean Platelet Volume 9.9 fl (7.4-10.4); Monocytes Absolute Auto 0.5 K/mm3 (0.1-0.6); Monocytes Percent Auto 6.3 % (2.6-8.5); Neutrophils Absolute Auto 4.6 K/mm3 (1.3-6.7); Neutrophils Percent Auto 62.8 % (45.5-73.1); Platelet Count Result 271 k/mm3 (150-375); Red Blood Count 5.16 M/mm3 (4.2-5.4); Red Cell Distribution Width 13.1 % (11.5-14.5); White Blood Count 7.4 K/mm3 (4.5-10.0)
[2024-09-17 14:51] LABS: Add Urine Microscopic? YES; Appearance Urine Clear (Clear); Bacteria Urine None Seen /hpf; Bilirubin Urine Negative (Negative); Blood Urine Negative (Negative); Color Urine Yellow (Yellow); Glucose Urine UA Negative (Negative); Ketones Urine Trace mg/dL (Negative); Leukocyte Esterase Ur Trace LEU/UL (Negative); Nitrate Urine Negative (Negative); Non Pathogenic Casts 0-2; Protein Urine Negative (Negative); RBC Urine 0-2 /hpf (0-2); Specific Grav Ur 1.005 (1.001-1.035); Squamous Epithelial Cell Urine None Seen /hpf (Few); Urobilinogen Urine 0.2 mg/dL (<2.0); WBC Urine 0-5 /hpf (0-3)
[2024-09-17 15:01] LABS: Alanine Aminotransferase 28 U/L (6-35); Albumin Level 4.6 g/dL (3.5-5.1); Alkaline Phosphatase 85 U/L (38-126); Anion Gap 5 mmol/L (4-12); Aspartate Amino Transferase 32 U/L (14-36); Blood Urea Nitrogen 14 mg/dL (7-17); Calcium 9.4 mg/dL (8.4-10.2); Carbon Dioxide 30 mmol/L (22-30); Chloride 105 mmol/L (98-107); Estimated CRCL calculation 75 ml/min; Estimated Glomerular Filt Rate > 60; Glucose 106 mg/dL (65-110); Lipase 68 U/L (23-300); Sodium 140 mmol/L (137-145)
[2024-09-17 15:12] LABS: NT Pro B Type Natriuretic Pept 43 pg/mL (19.9-100); Troponin I < 0.012 ng/mL (0.000-0.034)
[2024-09-17 15:14] LABS: INR 0.9; Partial Thromboplastin Time 28.7 Seconds (22.3-36.8)
== END 2024-09-17 19:00 | disposition home or self-care (01) ==
PROVIDERS: Registered Nurse; Emergency Provider Emergency Medicine; PCP Nurse Practitioner Family
DX: R00.2 Palpitations (principal); F41.9 Anxiety disorder, unspecified; I10 Essential (primary) hypertension; E78.5 Hyperlipidemia, unspecified; M19.90 Unspecified osteoarthritis, unspecified site; Z90.710 Acquired absence of both cervix and uterus; Z79.899 Other long term (current) drug therapy
CPT/HCPCS: 36415; 71046; 76536; 80053; 81001; 83690; 83880; 84484; 85025; 85610; 85730; 93005; 99284; A9270

== ENCOUNTER 2024-10-15 16:54 | Outpatient (CLI) | payer MEDICARE, SELFPAY ==
--- NOTE | ~2024-10-15 | CT_ITS ---
EXAMINATION: CT brain wo con DATE: 10/15/2024 17:18 INDICATION: Headache, unspecified. TECHNIQUE: Computed tomography (CT) of the head was performed without intravenous contrast. The mA wa s adjusted according to patient size. Iterative reconstruction technique was employed. The dose-lengt h product was 605.33 mGy-cm. COMPARISON: Head CT 06/19/2016 FINDINGS: There is no intracranial hemorrhage, acute infarction, or abnormal intracranial mass lesion . The ventricles are normal in size. There is an old blowout fracture of medial wall of right orbit. There is mild mucosal thickening in the paranasal sinuses. The mastoid air cells are normal. IMPRESSION: 1. Normal brain. Reviewed, dictated and finalized at location A. T OPERATIONS COORDINATOR IMPRESSION: 1. Normal brain.
== END 2024-10-15 16:55 | disposition home or self-care (01) ==
LOC: ANHIMG 16:54
PROVIDERS: PCP Nurse Practitioner Family; Visit Provider Nurse Practitioner Family
DX: R51.9 Headache, unspecified (principal)
CPT/HCPCS: 70450

== ENCOUNTER 2024-11-05 12:48 | Outpatient (CLI) | payer MEDICARE, SELFPAY ==
--- NOTE | ~2024-11-05 | MM_ITS ---
EXAMINATION: MM screening austyn BI w alyssa HISTORY: Screening TECHNIQUE: Craniocaudal and mediolateral oblique 3-D tomosynthesis images were obtained and synthetic 2-D images were generated. CAD analysis was submitted and interpreted. COMPARISON: Comparison to multiple prior studies sequentially, with oldest reviewed study dated 12/2016. BREAST PARENCHYMAL COMPOSITION: Not dense: There are scattered areas of fibroglandular density. FINDINGS: There is no evidence of suspicious mass, calcification, or architectural distortion to sugg est malignancy in either breast. There has been no suspicious interval change. IMPRESSION: 1. No mammographic evidence of malignancy. 2. Recommend routine screening mammography in one year. BI-RADS Category 1: Negative Reviewed, dictated and finalized at location B. S INSTRUCTOR
== END 2024-11-05 12:49 | disposition home or self-care (01) ==
LOC: CHSIMG 12:52
PROVIDERS: PCP Nurse Practitioner Family
DX: Z12.31 Encounter for screening mammogram for malignant neoplasm of breast (principal)
CPT/HCPCS: 77063; 77067

== ENCOUNTER 2024-11-27 12:48 | Outpatient (CLI) | payer MEDICARE, SELFPAY ==
--- NOTE | ~2024-11-27 | MR_ITS ---
EXAMINATION: MRA abdomen wo/w con DATE: 11/27/2024 15:22 INDICATION: Hypertension. TECHNIQUE: Magnetic resonance angiography (MRA) of the abdomen was performed without and with 19 mL M ultihance intravenous contrast. COMPARISON: Chest CTA 09/08/2024 FINDINGS: Abdominal aorta is normal in caliber. There is no significant stenosis of celiac axis or superior mes enteric artery. There are 2 right renal arteries and a single left renal artery without significant s tenosis. The adrenal glands and kidneys are normal. IMPRESSION: 1. No significant renal artery stenosis. Reviewed, dictated and finalized at location A. ENT DRIVING INSTRUCTOR
== END 2024-11-27 12:49 | disposition home or self-care (01) ==
LOC: MICIMG 12:49
PROVIDERS: PCP Nurse Practitioner Family
DX: I10 Essential (primary) hypertension (principal)
CPT/HCPCS: 74185; A9577; C8902